=== PATIENT | female | born 1955 | race Caucasian/White ===

== ENCOUNTER 2019-06-05 23:07 | Inpatient (IN) | payer MEDICAID ==
[2019-06-05] MEDS: OXYCODONE/ACETAMINOPHEN (5/325) TAB PO (23:23)
[2019-06-05] MEDS: KETOROLAC 30 MG INJ IM (23:23)
[2019-06-06] MEDS: SOD CHLORIDE 0.9% 1,000 ML IV (00:17)
[2019-06-06 00:29] LABS: WHITE BLOOD COUNT 10.3 10^3/ul (4.8-10.8)
[2019-06-06 00:29] LABS: ADD MAN DIFF? NO; BASOPHIL # 0.1 10^3/ul (0.0-0.1); BASOPHILS % 0.5 % (0.0-2.0); EOSINOPHILS # 0.2 10^3/ul (0.0-0.5); EOSINOPHILS % 2.2 % (0.0-7.0); HEMATOCRIT 37.7 % (37.0-47.0); HEMOGLOBIN 12.3 g/dl (12.0-16.0); LYMPHOCYTES # 2.4 10^3/ul (0.8-2.9); LYMPHOCYTES % 23.7 % (15.0-51.0); MEAN CORPUSCULAR HEMOGLOBIN 30.6 pg (29.0-33.0); MEAN CORPUSCULAR HGB CONC 32.6 g/dl (32.0-37.0); MEAN CORPUSCULAR VOLUME 93.8 fl (82.0-101.0); MEAN PLATELET VOLUME 10.1 fl (7.4-10.4); MONOCYTE # 0.5 10^3/ul (0.3-0.9); MONOCYTES % 4.9 % (0.0-11.0); NEUTROPHILS % 68.3 % (39.0-77.0); PLATELET COUNT 259 10^3/UL (140-415); RED BLOOD COUNT 4.02 10^6/ul (4.20-5.40); RED CELL DISTRIBUTION WIDTH 12.7 % (11.5-14.5)
[2019-06-06] MEDS: HYDROmorphONE 0.5 MG/0.5 ML SYG IV (00:44)
[2019-06-06 00:49] LABS: ANION GAP 10 (5-13); BLOOD UREA NITROGEN 18 mg/dl (7-20); CALCIUM 8.3 mg/dl (8.4-10.2); CARBON DIOXIDE 23 mmol/L (21-31); CHLORIDE 110 mmol/L (97-110); CREATININE 0.66 mg/dl (0.44-1.00); Estimated GFR > 60 mL/min (>60); GLUCOSE 119 mg/dl (70-220); INR 0.87; POTASSIUM 4.1 mmol/L (3.5-5.1); PROTIME 11.9 Sec (11.9-14.9); PT RATIO 0.9; SODIUM 143 mmol/L (135-144)
[2019-06-06 00:50] LABS: PARTIAL THROMBOPLASTIN TIME 22.7 Sec (23.0-35.0)
[2019-06-06] MEDS ORDERED: NACL 0.9% 3 ML SYG IV (02:00)
[2019-06-06 05:44] LABS: ADD MAN DIFF? NO
[2019-06-06 05:58] LABS: BASOPHILS % 0.4 % (0.0-2.0); EOSINOPHILS # 0.1 10^3/ul (0.0-0.5); EOSINOPHILS % 0.9 % (0.0-7.0); HEMATOCRIT 39.9 % (37.0-47.0); HEMOGLOBIN 13.3 g/dl (12.0-16.0); LYMPHOCYTES # 2.1 10^3/ul (0.8-2.9); LYMPHOCYTES % 21.3 % (15.0-51.0); MEAN CORPUSCULAR HGB CONC 33.3 g/dl (32.0-37.0); MEAN PLATELET VOLUME 10.5 fl (7.4-10.4); MONOCYTE # 0.6 10^3/ul (0.3-0.9); MONOCYTES % 5.9 % (0.0-11.0); NEUTROPHIL # 6.9 10^3/ul (1.6-7.5); NEUTROPHILS % 71.2 % (39.0-77.0); PLATELET COUNT 272 10^3/UL (140-415); RED BLOOD COUNT 4.29 10^6/ul (4.20-5.40); RED CELL DISTRIBUTION WIDTH 12.8 % (11.5-14.5)
[2019-06-06 05:58] LABS: WHITE BLOOD COUNT 9.7 10^3/ul (4.8-10.8)
[2019-06-06 06:29] LABS: ALANINE AMINOTRANSFERASE 19 IU/L (13-69); ALBUMIN/GLOBULIN RATIO 1.25; ANION GAP 10 (5-13); ASPARTATE AMINO TRANSFERASE 26 IU/L (15-46); BILIRUBIN,INDIRECT 0.2 mg/dl (0-1.1); BILIRUBIN,TOTAL 0.2 mg/dl (0.2-1.3); BLOOD UREA NITROGEN 18 mg/dl (7-20); CALCIUM 8.3 mg/dl (8.4-10.2); CARBON DIOXIDE 24 mmol/L (21-31); CHLORIDE 109 mmol/L (97-110); CREATININE 0.67 mg/dl (0.44-1.00); Estimated GFR > 60 mL/min (>60); GLUCOSE 113 mg/dl (70-220); MAGNESIUM 2.2 mg/dl (1.7-2.5); PHOSPHORUS 5.5 mg/dl (2.5-4.9); POTASSIUM 4.8 mmol/L (3.5-5.1); SODIUM 143 mmol/L (135-144); TOTAL PROTEIN 7.2 g/dl (6.1-8.1)
[2019-06-06 06:30] LABS: ALKALINE PHOSPHATASE 109 IU/L (42-121)
[2019-06-06 08:52] LABS: AMPHETAMINE/METHAMPHETAMINE Negative (NEGATIVE); BARBITURATES Negative (NEGATIVE); BENZODIAZEPINES Negative (NEGATIVE); CANNABINOIDS Negative (NEGATIVE); COCAINE Negative (NEGATIVE); OPIATES Positive (NEGATIVE)
[2019-06-06] MEDS: HEPARIN 5,000 UNIT/1 ML VIAL SC ×2 (08:54→20:47)
[2019-06-06] MEDS: ONDANSETRON 4 MG INJ IV (10:20)
[2019-06-06] MEDS: HYDROCODONE/APAP (5/325) TAB PO ×3 (10:20→22:25)
[2019-06-06] MEDS ORDERED: LORAZEPAM 2 MG INJ IV (17:30)
[2019-06-06] MEDS: ALBUTEROL/IPRATROPIUM (NEB) 3 ML AMP HHN ×2 (17:43→19:46)
[2019-06-06] MEDS: ACETAMINOPHEN 325 MG TAB PO (17:57)
[2019-06-06] MEDS: MULTIVITAMINS THERAPEUTIC TAB PO (17:58)
[2019-06-06] MEDS: morphine 2 MG INJ IV (18:36)
[2019-06-06] MEDS: CHLORDIAZEPOXIDE 25 MG CAP PO (20:46)
[2019-06-07] MEDS: morphine 2 MG INJ IV ×5 (04:59→21:17)
[2019-06-07 05:35] LABS: ADD MAN DIFF? NO
[2019-06-07 05:42] LABS: WHITE BLOOD COUNT 9.2 10^3/ul (4.8-10.8)
[2019-06-07 05:42] LABS: BASOPHIL # 0.1 10^3/ul (0.0-0.1); BASOPHILS % 0.5 % (0.0-2.0); EOSINOPHILS # 0.2 10^3/ul (0.0-0.5); EOSINOPHILS % 1.6 % (0.0-7.0); HEMATOCRIT 36.1 % (37.0-47.0); LYMPHOCYTES # 2.1 10^3/ul (0.8-2.9); LYMPHOCYTES % 23.2 % (15.0-51.0); MEAN CORPUSCULAR HEMOGLOBIN 30.8 pg (29.0-33.0); MEAN CORPUSCULAR HGB CONC 33.2 g/dl (32.0-37.0); MEAN CORPUSCULAR VOLUME 92.8 fl (82.0-101.0); MEAN PLATELET VOLUME 10.8 fl (7.4-10.4); MONOCYTE # 0.9 10^3/ul (0.3-0.9); MONOCYTES % 10.2 % (0.0-11.0); NEUTROPHIL # 5.9 10^3/ul (1.6-7.5); NEUTROPHILS % 64.2 % (39.0-77.0); PLATELET COUNT 218 10^3/UL (140-415); RED BLOOD COUNT 3.89 10^6/ul (4.20-5.40); RED CELL DISTRIBUTION WIDTH 12.8 % (11.5-14.5)
[2019-06-07 06:13] LABS: ANION GAP 7 (5-13); BLOOD UREA NITROGEN 12 mg/dl (7-20); CALCIUM 8.6 mg/dl (8.4-10.2); CARBON DIOXIDE 26 mmol/L (21-31); CHLORIDE 105 mmol/L (97-110); CREATININE 0.62 mg/dl (0.44-1.00); Estimated GFR > 60 mL/min (>60); GLUCOSE 124 mg/dl (70-220); MAGNESIUM 1.9 mg/dl (1.7-2.5); PHOSPHORUS 3.6 mg/dl (2.5-4.9); POTASSIUM 4.1 mmol/L (3.5-5.1); SODIUM 138 mmol/L (135-144)
[2019-06-07 06:21] LABS: CHOL/HDL RATIO 3.3 RATIO; HDL CHOLESTEROL 47 mg/dl (35-98); LDL CHOLESTEROL,CALCULATED 71 mg/dl; TRIGLYCERIDES 204 mg/dl (0-149)
[2019-06-07 06:21] LABS: CHOLESTEROL 159 mg/dl (100-200)
[2019-06-07] MEDS: HYDROCODONE/APAP (5/325) TAB PO (06:25)
[2019-06-07 06:32] LABS: PROTIME 12.3 Sec (11.9-14.9)
[2019-06-07 06:33] LABS: PARTIAL THROMBOPLASTIN TIME 28.6 Sec (23.0-35.0)
[2019-06-07 07:10] LABS: HEMOGLOBIN A1C 5.5 % (0-5.9)
[2019-06-07 08:03] LABS: HAAIG REFLEX REFLEX FILED
[2019-06-07] MEDS: THIAMINE 100 MG TAB PO (08:18)
[2019-06-07] MEDS: MULTIVITAMINS THERAPEUTIC TAB PO (08:18)
[2019-06-07] MEDS: CHLORDIAZEPOXIDE 25 MG CAP PO ×3 (08:18→21:16)
[2019-06-07] MEDS: HEPARIN 5,000 UNIT/1 ML VIAL SC ×2 (08:19→21:17)
[2019-06-07] MEDS: ALBUTEROL/IPRATROPIUM (NEB) 3 ML AMP HHN ×3 (08:20→20:46)
[2019-06-07 08:50] LABS: HEPATITIS B SURFACE ANTIGEN NEGATIVE (NEGATIVE)
[2019-06-07 09:08] LABS: HEPATITIS B CORE ANTIBODY NEGATIVE (NEGATIVE); HEPATITIS C VIRAL ANTIBODY NEGATIVE (NEGATIVE)
[2019-06-08] MEDS ORDERED: POLYETHYLENE GLYCOL 17 GM PACKET (05:21)
[2019-06-08] MEDS: POLYETHYLENE GLYCOL 17 GM PACKET PO ×2 (05:25→08:58)
[2019-06-08] MEDS: morphine 2 MG INJ IV (05:25)
[2019-06-08 06:20] LABS: ADD MAN DIFF? NO
[2019-06-08 06:23] LABS: WHITE BLOOD COUNT 9.1 10^3/ul (4.8-10.8)
[2019-06-08 06:23] LABS: BASOPHIL # 0.1 10^3/ul (0.0-0.1); BASOPHILS % 0.6 % (0.0-2.0); EOSINOPHILS # 0.1 10^3/ul (0.0-0.5); HEMATOCRIT 37.8 % (37.0-47.0); HEMOGLOBIN 12.6 g/dl (12.0-16.0); LYMPHOCYTES # 1.8 10^3/ul (0.8-2.9); LYMPHOCYTES % 19.8 % (15.0-51.0); MEAN CORPUSCULAR HEMOGLOBIN 30.6 pg (29.0-33.0); MEAN CORPUSCULAR HGB CONC 33.3 g/dl (32.0-37.0); MEAN CORPUSCULAR VOLUME 91.7 fl (82.0-101.0); MEAN PLATELET VOLUME 10.6 fl (7.4-10.4); MONOCYTE # 0.9 10^3/ul (0.3-0.9); MONOCYTES % 9.8 % (0.0-11.0); NEUTROPHIL # 6.2 10^3/ul (1.6-7.5); NEUTROPHILS % 68.6 % (39.0-77.0); PLATELET COUNT 223 10^3/UL (140-415); RED BLOOD COUNT 4.12 10^6/ul (4.20-5.40); RED CELL DISTRIBUTION WIDTH 12.6 % (11.5-14.5)
[2019-06-08 07:03] LABS: PHOSPHORUS 4.1 mg/dl (2.5-4.9)
[2019-06-08 07:03] LABS: ANION GAP 8 (5-13); BLOOD UREA NITROGEN 7 mg/dl (7-20); CALCIUM 9.2 mg/dl (8.4-10.2); CARBON DIOXIDE 29 mmol/L (21-31); CHLORIDE 100 mmol/L (97-110); CREATININE 0.59 mg/dl (0.44-1.00); Estimated GFR > 60 mL/min (>60); GLUCOSE 120 mg/dl (70-220); POTASSIUM 4.1 mmol/L (3.5-5.1); SODIUM 137 mmol/L (135-144)
[2019-06-08] MEDS: ALBUTEROL/IPRATROPIUM (NEB) 3 ML AMP HHN ×2 (08:00→13:26)
[2019-06-08] MEDS: CHLORDIAZEPOXIDE 25 MG CAP PO ×3 (08:58→20:27)
[2019-06-08] MEDS: THIAMINE 100 MG TAB PO (08:58)
[2019-06-08] MEDS: MULTIVITAMINS THERAPEUTIC TAB PO (08:58)
[2019-06-08] MEDS: HEPARIN 5,000 UNIT/1 ML VIAL SC ×2 (08:59→20:28)
[2019-06-08] MEDS: DOCUSATE SODIUM 100 MG CAP PO ×2 (09:00→20:27)
[2019-06-08] MEDS: SOD CHLORIDE 0.9% 1,000 ML IV (23:31)
[2019-06-09 07:22] LABS: ADD MAN DIFF? NO
[2019-06-09 07:33] LABS: WHITE BLOOD COUNT 7.3 10^3/ul (4.8-10.8)
[2019-06-09 07:33] LABS: BASOPHILS % 0.5 % (0.0-2.0); EOSINOPHILS # 0.2 10^3/ul (0.0-0.5); EOSINOPHILS % 3.3 % (0.0-7.0); HEMATOCRIT 36.5 % (37.0-47.0); HEMOGLOBIN 12.1 g/dl (12.0-16.0); LYMPHOCYTES # 1.7 10^3/ul (0.8-2.9); LYMPHOCYTES % 23.9 % (15.0-51.0); MEAN CORPUSCULAR HEMOGLOBIN 30.9 pg (29.0-33.0); MEAN CORPUSCULAR HGB CONC 33.2 g/dl (32.0-37.0); MEAN CORPUSCULAR VOLUME 93.4 fl (82.0-101.0); MEAN PLATELET VOLUME 10.9 fl (7.4-10.4); MONOCYTE # 0.7 10^3/ul (0.3-0.9); MONOCYTES % 9.9 % (0.0-11.0); NEUTROPHIL # 4.5 10^3/ul (1.6-7.5); NEUTROPHILS % 62.1 % (39.0-77.0); PLATELET COUNT 248 10^3/UL (140-415); RED BLOOD COUNT 3.91 10^6/ul (4.20-5.40); RED CELL DISTRIBUTION WIDTH 12.9 % (11.5-14.5)
[2019-06-09 07:51] LABS: ANION GAP 7 (5-13); BLOOD UREA NITROGEN 12 mg/dl (7-20); CARBON DIOXIDE 28 mmol/L (21-31); CHLORIDE 105 mmol/L (97-110); CREATININE 0.63 mg/dl (0.44-1.00); Estimated GFR > 60 mL/min (>60); GLUCOSE 102 mg/dl (70-220); POTASSIUM 4.1 mmol/L (3.5-5.1); SODIUM 140 mmol/L (135-144)
[2019-06-09 08:41] LABS: MAGNESIUM 2.2 mg/dl (1.7-2.5)
[2019-06-09 08:41] LABS: PHOSPHORUS 4.5 mg/dl (2.5-4.9)
[2019-06-09] MEDS: MULTIVITAMINS THERAPEUTIC TAB PO (08:56)
[2019-06-09] MEDS: DOCUSATE SODIUM 100 MG CAP PO ×2 (08:56→20:57)
[2019-06-09] MEDS: THIAMINE 100 MG TAB PO (08:56)
[2019-06-09] MEDS: CHLORDIAZEPOXIDE 25 MG CAP PO ×3 (08:56→20:57)
[2019-06-09] MEDS: HEPARIN 5,000 UNIT/1 ML VIAL SC ×2 (08:57→20:55)
[2019-06-09] MEDS ORDERED: EPINEPHrine 1 MG INJ (13:59)
[2019-06-09] MEDS ORDERED: EPINEPHrine 0.1 MG/ML SYG (13:59)
[2019-06-09] MEDS ORDERED: PROPOFOL 20 ML (13:59)
[2019-06-09] MEDS ORDERED: LIDOCAINE 2% (SDV) 5 ML INJ (14:00)
[2019-06-09] MEDS ORDERED: ROCURONIUM 50 MG INJ (14:00)
[2019-06-09] MEDS ORDERED: FENTAnyl 50 MCG/ML VIAL (14:00)
[2019-06-09] MEDS ORDERED: MIDAZOLAM 1 MG/ML 2 ML INJ (14:00)
[2019-06-09] MEDS: POLYMYXIN/BACITRACIN 1L IRRIG (16:00)
[2019-06-09] MEDS ORDERED: DEXAMETHASONE 4 MG/ML 5 ML INJ (17:18)
[2019-06-09] MEDS ORDERED: ONDANSETRON 4 MG INJ (17:18)
[2019-06-09] MEDS ORDERED: NEOSTIGMINE 3 MG/3 ML SYRINGE (17:43)
[2019-06-09] MEDS ORDERED: GLYCOPYRROLATE 0.4 MG INJ (17:43)
[2019-06-09] MEDS ORDERED: EPHEDrine 25 MG/5 ML SYG IV (18:00)
[2019-06-09] MEDS ORDERED: HYDROmorphONE 1 MG/5 ML IV SYRINGE IV (18:00)
[2019-06-09] MEDS ORDERED: NACL 0.9% 3 ML SYG IV (18:00)
[2019-06-09] MEDS ORDERED: MEPERIDINE 25 MG INJ IV (18:00)
[2019-06-09] MEDS ORDERED: hydrALAzine 20 MG INJ IV (18:00)
[2019-06-09] MEDS ORDERED: LABETALOL HCL 20MG INJ IV (18:00)
[2019-06-09] MEDS ORDERED: oxyCODONE 5 MG TAB PO (18:00)
[2019-06-09] MEDS ORDERED: OXYCODONE/ACETAMINOPHEN (5/325) TAB PO ×2 (18:00)
[2019-06-09] MEDS ORDERED: DIPHENHYDRAMINE 50 MG INJ IV (18:00)
[2019-06-09] MEDS ORDERED: MIDAZOLAM 1 MG/ML 2 ML INJ IV (18:00)
[2019-06-09] MEDS ORDERED: KETOROLAC 30 MG INJ IV (18:00)
[2019-06-09] MEDS ORDERED: ALBUTEROL 0.083% (NEB) 2.5 MG/3 ML AMP HHN (18:00)
[2019-06-09] MEDS ORDERED: METOCLOPRAMIDE 10 MG INJ IV (18:00)
[2019-06-09 18:13] LABS: ADD UMIC NO; UR ASCORBIC ACID NEGATIVE (NEGATIVE); UR BILIRUBIN (Dip) NEGATIVE (NEGATIVE); UR BLOOD (Dip) NEGATIVE (NEGATIVE); UR CLARITY CLEAR (CLEAR); UR COLOR YELLOW (YELLOW); UR GLUCOSE (Dip) NEGATIVE (NEGATIVE); UR KETONES (Dip) 2+ mg/dL (NEGATIVE); UR LEUKOCYTE ESTERASE (Dip) NEGATIVE Leu/ul (NEGATIVE); UR NITRITE (Dip) NEGATIVE (NEGATIVE); UR SPECIFIC GRAVITY (Dip) 1.026 (1.003-1.030); UR TOTAL PROTEIN (Dip) NEGATIVE (NEGATIVE); UR UROBILINOGEN (Dip) 1+ mg/dL (NEGATIVE)
[2019-06-09] MEDS: HYDROmorphONE 1 MG/5 ML IV SYRINGE IV ×2 (18:36→18:41)
[2019-06-09] MEDS: ONDANSETRON 4 MG INJ IV (18:39)
[2019-06-09] MEDS: DEXTROSE 5%-LR 1,000 ML IV (19:08)
[2019-06-09] MEDS: SOD CHLORIDE 0.9% 1,000 ML IV (19:55)
[2019-06-09] MEDS: morphine 2 MG INJ IV (21:26)
[2019-06-09] MEDS: HYDROmorphONE 1 MG/ML SYG IV (23:06)
[2019-06-10] MEDS: SOD CHLORIDE 0.9% 1,000 ML IV ×3 (05:26→19:19)
[2019-06-10] MEDS: morphine 2 MG INJ IV (05:26)
[2019-06-10 05:28] LABS: ADD MAN DIFF? NO
[2019-06-10 05:32] LABS: BASOPHILS % 0.1 % (0.0-2.0); EOSINOPHILS % 0.1 % (0.0-7.0); HEMATOCRIT 33.1 % (37.0-47.0); LYMPHOCYTES # 0.6 10^3/ul (0.8-2.9); LYMPHOCYTES % 7.2 % (15.0-51.0); MEAN CORPUSCULAR HEMOGLOBIN 31.1 pg (29.0-33.0); MEAN CORPUSCULAR HGB CONC 33.2 g/dl (32.0-37.0); MEAN CORPUSCULAR VOLUME 93.5 fl (82.0-101.0); MEAN PLATELET VOLUME 10.6 fl (7.4-10.4); MONOCYTE # 0.5 10^3/ul (0.3-0.9); MONOCYTES % 6.5 % (0.0-11.0); NEUTROPHIL # 7.1 10^3/ul (1.6-7.5); NEUTROPHILS % 85.6 % (39.0-77.0); PLATELET COUNT 235 10^3/UL (140-415); RED BLOOD COUNT 3.54 10^6/ul (4.20-5.40); RED CELL DISTRIBUTION WIDTH 12.5 % (11.5-14.5)
[2019-06-10 05:32] LABS: WHITE BLOOD COUNT 8.3 10^3/ul (4.8-10.8)
[2019-06-10 06:16] LABS: MAGNESIUM 1.9 mg/dl (1.7-2.5)
[2019-06-10 06:16] LABS: PHOSPHORUS 4.4 mg/dl (2.5-4.9)
[2019-06-10 07:04] LABS: ANION GAP 9 (5-13); BLOOD UREA NITROGEN 11 mg/dl (7-20); CALCIUM 8.7 mg/dl (8.4-10.2); CARBON DIOXIDE 23 mmol/L (21-31); CHLORIDE 104 mmol/L (97-110); CREATININE 0.46 mg/dl (0.44-1.00); Estimated GFR > 60 mL/min (>60); GLUCOSE 192 mg/dl (70-220); POTASSIUM 4.5 mmol/L (3.5-5.1); SODIUM 136 mmol/L (135-144)
[2019-06-10] MEDS: BISACODYL (EC) 5 MG TAB PO (08:50)
[2019-06-10] MEDS: ENOXAPARIN 40 MG/0.4 ML SYG SC (08:50)
[2019-06-10] MEDS: MULTIVITAMINS THERAPEUTIC TAB PO (08:51)
[2019-06-10] MEDS: CHLORDIAZEPOXIDE 25 MG CAP PO (08:51)
[2019-06-10] MEDS: THIAMINE 100 MG TAB PO (08:51)
[2019-06-10] MEDS: DOCUSATE SODIUM 100 MG CAP PO ×2 (08:51→20:17)
[2019-06-10] MEDS: HYDROCODONE/APAP (5/325) TAB PO ×3 (08:53→20:17)
[2019-06-10] MEDS: CHLORDIAZEPOXIDE 5 MG CAP PO ×2 (13:18→20:17)
[2019-06-11] MEDS: HYDROCODONE/APAP (5/325) TAB PO ×2 (04:51→23:33)
[2019-06-11] MEDS: POLYETHYLENE GLYCOL 17 GM PACKET PO (05:34)
[2019-06-11 07:13] LABS: ADD MAN DIFF? NO
[2019-06-11 07:17] LABS: BASOPHILS % 0.4 % (0.0-2.0); EOSINOPHILS # 0.1 10^3/ul (0.0-0.5); EOSINOPHILS % 1.4 % (0.0-7.0); HEMATOCRIT 32.1 % (37.0-47.0); HEMOGLOBIN 10.3 g/dl (12.0-16.0); LYMPHOCYTES # 1.6 10^3/ul (0.8-2.9); LYMPHOCYTES % 20.1 % (15.0-51.0); MEAN CORPUSCULAR HEMOGLOBIN 30.6 pg (29.0-33.0); MEAN CORPUSCULAR HGB CONC 32.1 g/dl (32.0-37.0); MEAN CORPUSCULAR VOLUME 95.3 fl (82.0-101.0); MEAN PLATELET VOLUME 10.6 fl (7.4-10.4); MONOCYTE # 0.8 10^3/ul (0.3-0.9); MONOCYTES % 9.7 % (0.0-11.0); NEUTROPHIL # 5.5 10^3/ul (1.6-7.5); NEUTROPHILS % 68.2 % (39.0-77.0); PLATELET COUNT 247 10^3/UL (140-415); RED BLOOD COUNT 3.37 10^6/ul (4.20-5.40)
[2019-06-11 07:44] LABS: MAGNESIUM 1.9 mg/dl (1.7-2.5)
[2019-06-11 07:44] LABS: PHOSPHORUS 4.4 mg/dl (2.5-4.9)
[2019-06-11 07:46] LABS: ANION GAP 5 (5-13); BLOOD UREA NITROGEN 9 mg/dl (7-20); CALCIUM 8.5 mg/dl (8.4-10.2); CARBON DIOXIDE 29 mmol/L (21-31); CHLORIDE 104 mmol/L (97-110); CREATININE 0.53 mg/dl (0.44-1.00); Estimated GFR > 60 mL/min (>60); GLUCOSE 107 mg/dl (70-220); POTASSIUM 3.6 mmol/L (3.5-5.1); SODIUM 138 mmol/L (135-144)
[2019-06-11] MEDS: DOCUSATE SODIUM 100 MG CAP PO ×2 (08:29→21:02)
[2019-06-11] MEDS: THIAMINE 100 MG TAB PO (08:29)
[2019-06-11] MEDS: CHLORDIAZEPOXIDE 5 MG CAP PO ×2 (08:29→21:02)
[2019-06-11] MEDS: MULTIVITAMINS THERAPEUTIC TAB PO (08:29)
[2019-06-11] MEDS: ENOXAPARIN 40 MG/0.4 ML SYG SC (08:30)
[2019-06-11] MEDS: morphine 2 MG INJ IV ×2 (09:37→14:17)
[2019-06-11] MEDS: SOD CHLORIDE 0.9% 1,000 ML IV (10:16)
[2019-06-11] MEDS: BISACODYL (EC) 5 MG TAB PO (10:16)
[2019-06-11] MEDS: NA PHOSPHATE/BIPHOS 133 ML ENEMA PR (14:17)
[2019-06-12 05:52] LABS: ADD MAN DIFF? NO
[2019-06-12 05:57] LABS: BASOPHIL # 0.1 10^3/ul (0.0-0.1); BASOPHILS % 0.6 % (0.0-2.0); EOSINOPHILS # 0.2 10^3/ul (0.0-0.5); EOSINOPHILS % 2.9 % (0.0-7.0); HEMATOCRIT 33.7 % (37.0-47.0); HEMOGLOBIN 11.1 g/dl (12.0-16.0); LYMPHOCYTES # 2.1 10^3/ul (0.8-2.9); LYMPHOCYTES % 25.9 % (15.0-51.0); MEAN CORPUSCULAR HEMOGLOBIN 30.8 pg (29.0-33.0); MEAN CORPUSCULAR HGB CONC 32.9 g/dl (32.0-37.0); MEAN CORPUSCULAR VOLUME 93.6 fl (82.0-101.0); MEAN PLATELET VOLUME 10.1 fl (7.4-10.4); MONOCYTE # 0.9 10^3/ul (0.3-0.9); MONOCYTES % 11.1 % (0.0-11.0); NEUTROPHIL # 4.7 10^3/ul (1.6-7.5); PLATELET COUNT 287 10^3/UL (140-415); RED CELL DISTRIBUTION WIDTH 12.8 % (11.5-14.5)
[2019-06-12 06:21] LABS: PHOSPHORUS 5.2 mg/dl (2.5-4.9)
[2019-06-12 06:21] LABS: MAGNESIUM 2.2 mg/dl (1.7-2.5)
[2019-06-12 06:25] LABS: ANION GAP 5 (5-13); BLOOD UREA NITROGEN 9 mg/dl (7-20); CALCIUM 9.1 mg/dl (8.4-10.2); CARBON DIOXIDE 29 mmol/L (21-31); CHLORIDE 106 mmol/L (97-110); CREATININE 0.51 mg/dl (0.44-1.00); Estimated GFR > 60 mL/min (>60); GLUCOSE 100 mg/dl (70-220); POTASSIUM 3.9 mmol/L (3.5-5.1); SODIUM 140 mmol/L (135-144)
[2019-06-12] MEDS: DOCUSATE SODIUM 100 MG CAP PO ×2 (08:58→20:35)
[2019-06-12] MEDS: CHLORDIAZEPOXIDE 5 MG CAP PO ×3 (08:59→20:35)
[2019-06-12] MEDS: MULTIVITAMINS THERAPEUTIC TAB PO (08:59)
[2019-06-12] MEDS: THIAMINE 100 MG TAB PO (08:59)
[2019-06-12] MEDS: ENOXAPARIN 40 MG/0.4 ML SYG SC (09:00)
[2019-06-12] MEDS: HYDROCODONE/APAP (5/325) TAB PO (20:35)
[2019-06-13 05:49] LABS: ADD MAN DIFF? NO
[2019-06-13 05:56] LABS: WHITE BLOOD COUNT 7.4 10^3/ul (4.8-10.8)
[2019-06-13 05:56] LABS: BASOPHILS % 0.5 % (0.0-2.0); EOSINOPHILS # 0.2 10^3/ul (0.0-0.5); EOSINOPHILS % 3.1 % (0.0-7.0); HEMATOCRIT 35.1 % (37.0-47.0); HEMOGLOBIN 11.6 g/dl (12.0-16.0); LYMPHOCYTES # 1.8 10^3/ul (0.8-2.9); LYMPHOCYTES % 23.5 % (15.0-51.0); MEAN CORPUSCULAR VOLUME 93.9 fl (82.0-101.0); MEAN PLATELET VOLUME 9.6 fl (7.4-10.4); MONOCYTE # 0.8 10^3/ul (0.3-0.9); MONOCYTES % 10.5 % (0.0-11.0); NEUTROPHIL # 4.6 10^3/ul (1.6-7.5); NEUTROPHILS % 61.9 % (39.0-77.0); PLATELET COUNT 320 10^3/UL (140-415); RED BLOOD COUNT 3.74 10^6/ul (4.20-5.40); RED CELL DISTRIBUTION WIDTH 12.8 % (11.5-14.5)
[2019-06-13 06:26] LABS: MAGNESIUM 2.2 mg/dl (1.7-2.5)
[2019-06-13 06:34] LABS: ANION GAP 7 (5-13); BLOOD UREA NITROGEN 11 mg/dl (7-20); CALCIUM 9.5 mg/dl (8.4-10.2); CARBON DIOXIDE 29 mmol/L (21-31); CHLORIDE 104 mmol/L (97-110); CREATININE 0.65 mg/dl (0.44-1.00); Estimated GFR > 60 mL/min (>60); GLUCOSE 103 mg/dl (70-220); POTASSIUM 4.2 mmol/L (3.5-5.1); SODIUM 140 mmol/L (135-144)
[2019-06-13] MEDS: CHLORDIAZEPOXIDE 5 MG CAP PO ×3 (08:53→20:22)
[2019-06-13] MEDS: DOCUSATE SODIUM 100 MG CAP PO ×2 (08:53→20:22)
[2019-06-13] MEDS: THIAMINE 100 MG TAB PO (08:53)
[2019-06-13] MEDS: MULTIVITAMINS THERAPEUTIC TAB PO (08:53)
[2019-06-13] MEDS: HYDROCODONE/APAP (5/325) TAB PO ×2 (08:53→17:07)
[2019-06-13] MEDS: ENOXAPARIN 40 MG/0.4 ML SYG SC (08:54)
[2019-06-13] MEDS: morphine 2 MG INJ IV (20:22)
[2019-06-14 06:19] LABS: ADD MAN DIFF? NO
[2019-06-14 06:28] LABS: BASOPHIL # 0.1 10^3/ul (0.0-0.1); BASOPHILS % 0.7 % (0.0-2.0); EOSINOPHILS # 0.4 10^3/ul (0.0-0.5); EOSINOPHILS % 4.1 % (0.0-7.0); HEMATOCRIT 34.4 % (37.0-47.0); HEMOGLOBIN 11.3 g/dl (12.0-16.0); LYMPHOCYTES # 1.8 10^3/ul (0.8-2.9); LYMPHOCYTES % 20.5 % (15.0-51.0); MEAN CORPUSCULAR HEMOGLOBIN 30.9 pg (29.0-33.0); MEAN CORPUSCULAR HGB CONC 32.8 g/dl (32.0-37.0); MONOCYTE # 0.8 10^3/ul (0.3-0.9); MONOCYTES % 9.3 % (0.0-11.0); NEUTROPHIL # 5.5 10^3/ul (1.6-7.5); NEUTROPHILS % 64.7 % (39.0-77.0); PLATELET COUNT 371 10^3/UL (140-415); RED BLOOD COUNT 3.66 10^6/ul (4.20-5.40); RED CELL DISTRIBUTION WIDTH 12.6 % (11.5-14.5)
[2019-06-14 06:28] LABS: WHITE BLOOD COUNT 8.6 10^3/ul (4.8-10.8)
[2019-06-14 06:47] LABS: ANION GAP 6 (5-13); BLOOD UREA NITROGEN 11 mg/dl (7-20); CALCIUM 9.1 mg/dl (8.4-10.2); CARBON DIOXIDE 28 mmol/L (21-31); CHLORIDE 103 mmol/L (97-110); CREATININE 0.58 mg/dl (0.44-1.00); Estimated GFR > 60 mL/min (>60); GLUCOSE 117 mg/dl (70-220); POTASSIUM 4.2 mmol/L (3.5-5.1); SODIUM 137 mmol/L (135-144)
[2019-06-14] MEDS: MULTIVITAMINS THERAPEUTIC TAB PO (09:44)
[2019-06-14] MEDS: HYDROCODONE/APAP (5/325) TAB PO (09:45)
[2019-06-14] MEDS: THIAMINE 100 MG TAB PO (09:45)
[2019-06-14] MEDS: CHLORDIAZEPOXIDE 5 MG CAP PO ×3 (09:45→21:24)
[2019-06-14] MEDS: DOCUSATE SODIUM 100 MG CAP PO ×2 (09:45→21:24)
[2019-06-14] MEDS: ENOXAPARIN 40 MG/0.4 ML SYG SC (09:46)
[2019-06-15 06:16] LABS: ADD MAN DIFF? NO
[2019-06-15 06:22] LABS: BASOPHILS % 0.5 % (0.0-2.0); EOSINOPHILS # 0.3 10^3/ul (0.0-0.5); EOSINOPHILS % 3.9 % (0.0-7.0); HEMATOCRIT 34.7 % (37.0-47.0); HEMOGLOBIN 11.5 g/dl (12.0-16.0); LYMPHOCYTES # 1.8 10^3/ul (0.8-2.9); LYMPHOCYTES % 21.9 % (15.0-51.0); MEAN CORPUSCULAR HEMOGLOBIN 30.9 pg (29.0-33.0); MEAN CORPUSCULAR HGB CONC 33.1 g/dl (32.0-37.0); MEAN CORPUSCULAR VOLUME 93.3 fl (82.0-101.0); MEAN PLATELET VOLUME 9.7 fl (7.4-10.4); MONOCYTE # 0.8 10^3/ul (0.3-0.9); MONOCYTES % 10.1 % (0.0-11.0); NEUTROPHIL # 5.2 10^3/ul (1.6-7.5); NEUTROPHILS % 62.9 % (39.0-77.0); PLATELET COUNT 432 10^3/UL (140-415); RED BLOOD COUNT 3.72 10^6/ul (4.20-5.40); RED CELL DISTRIBUTION WIDTH 12.9 % (11.5-14.5)
[2019-06-15 06:22] LABS: WHITE BLOOD COUNT 8.3 10^3/ul (4.8-10.8)
[2019-06-15 06:49] LABS: ANION GAP 8 (5-13); BLOOD UREA NITROGEN 10 mg/dl (7-20); CALCIUM 9.2 mg/dl (8.4-10.2); CARBON DIOXIDE 27 mmol/L (21-31); CHLORIDE 107 mmol/L (97-110); Estimated GFR > 60 mL/min (>60); GLUCOSE 116 mg/dl (70-220); POTASSIUM 4.3 mmol/L (3.5-5.1); SODIUM 142 mmol/L (135-144)
[2019-06-15] MEDS: MULTIVITAMINS THERAPEUTIC TAB PO (09:05)
[2019-06-15] MEDS: DOCUSATE SODIUM 100 MG CAP PO ×2 (09:05→20:38)
[2019-06-15] MEDS: CHLORDIAZEPOXIDE 5 MG CAP PO ×2 (09:05→12:35)
[2019-06-15] MEDS: THIAMINE 100 MG TAB PO (09:05)
[2019-06-15] MEDS: ENOXAPARIN 40 MG/0.4 ML SYG SC (09:06)
[2019-06-15] MEDS: HYDROCODONE/APAP (5/325) TAB PO (11:41)
[2019-06-16] MEDS: HYDROCODONE/APAP (5/325) TAB PO ×2 (05:31→20:02)
[2019-06-16 06:30] LABS: WHITE BLOOD COUNT 7.5 10^3/ul (4.8-10.8)
[2019-06-16 06:30] LABS: ADD MAN DIFF? NO; BASOPHIL # 0.1 10^3/ul (0.0-0.1); BASOPHILS % 0.8 % (0.0-2.0); EOSINOPHILS # 0.3 10^3/ul (0.0-0.5); EOSINOPHILS % 3.9 % (0.0-7.0); HEMOGLOBIN 11.6 g/dl (12.0-16.0); LYMPHOCYTES # 1.7 10^3/ul (0.8-2.9); LYMPHOCYTES % 23.1 % (15.0-51.0); MEAN CORPUSCULAR HEMOGLOBIN 29.9 pg (29.0-33.0); MEAN CORPUSCULAR HGB CONC 31.4 g/dl (32.0-37.0); MEAN CORPUSCULAR VOLUME 95.4 fl (82.0-101.0); MEAN PLATELET VOLUME 9.9 fl (7.4-10.4); MONOCYTE # 0.7 10^3/ul (0.3-0.9); MONOCYTES % 9.1 % (0.0-11.0); NEUTROPHIL # 4.7 10^3/ul (1.6-7.5); NEUTROPHILS % 62.6 % (39.0-77.0); PLATELET COUNT 436 10^3/UL (140-415); RED BLOOD COUNT 3.88 10^6/ul (4.20-5.40); RED CELL DISTRIBUTION WIDTH 12.9 % (11.5-14.5)
[2019-06-16 07:03] LABS: ANION GAP 8 (5-13); BLOOD UREA NITROGEN 13 mg/dl (7-20); CALCIUM 9.5 mg/dl (8.4-10.2); CARBON DIOXIDE 30 mmol/L (21-31); CHLORIDE 104 mmol/L (97-110); CREATININE 0.62 mg/dl (0.44-1.00); Estimated GFR > 60 mL/min (>60); GLUCOSE 108 mg/dl (70-220); POTASSIUM 4.5 mmol/L (3.5-5.1); SODIUM 142 mmol/L (135-144)
[2019-06-16] MEDS: MULTIVITAMINS THERAPEUTIC TAB PO (09:10)
[2019-06-16] MEDS: DOCUSATE SODIUM 100 MG CAP PO ×2 (09:10→20:02)
[2019-06-16] MEDS: THIAMINE 100 MG TAB PO (09:10)
[2019-06-16] MEDS: ENOXAPARIN 40 MG/0.4 ML SYG SC (09:11)
[2019-06-17] MEDS: HYDROCODONE/APAP (5/325) TAB PO ×2 (05:21→20:16)
[2019-06-17 06:17] LABS: ADD MAN DIFF? NO
[2019-06-17 06:29] LABS: WHITE BLOOD COUNT 8.1 10^3/ul (4.8-10.8)
[2019-06-17 06:29] LABS: BASOPHIL # 0.1 10^3/ul (0.0-0.1); BASOPHILS % 0.7 % (0.0-2.0); EOSINOPHILS # 0.3 10^3/ul (0.0-0.5); EOSINOPHILS % 3.9 % (0.0-7.0); HEMATOCRIT 36.1 % (37.0-47.0); HEMOGLOBIN 11.4 g/dl (12.0-16.0); LYMPHOCYTES # 2.5 10^3/ul (0.8-2.9); LYMPHOCYTES % 30.4 % (15.0-51.0); MEAN CORPUSCULAR HEMOGLOBIN 30.2 pg (29.0-33.0); MEAN CORPUSCULAR HGB CONC 31.6 g/dl (32.0-37.0); MEAN CORPUSCULAR VOLUME 95.5 fl (82.0-101.0); MEAN PLATELET VOLUME 9.9 fl (7.4-10.4); MONOCYTE # 0.7 10^3/ul (0.3-0.9); MONOCYTES % 9.2 % (0.0-11.0); NEUTROPHIL # 4.4 10^3/ul (1.6-7.5); NEUTROPHILS % 55.1 % (39.0-77.0); PLATELET COUNT 426 10^3/UL (140-415); RED BLOOD COUNT 3.78 10^6/ul (4.20-5.40); RED CELL DISTRIBUTION WIDTH 12.7 % (11.5-14.5)
[2019-06-17 06:49] LABS: ANION GAP 7 (5-13); BLOOD UREA NITROGEN 13 mg/dl (7-20); CALCIUM 9.4 mg/dl (8.4-10.2); CARBON DIOXIDE 29 mmol/L (21-31); CHLORIDE 104 mmol/L (97-110); CREATININE 0.62 mg/dl (0.44-1.00); Estimated GFR > 60 mL/min (>60); GLUCOSE 95 mg/dl (70-220); POTASSIUM 4.1 mmol/L (3.5-5.1); SODIUM 140 mmol/L (135-144)
[2019-06-17] MEDS: MULTIVITAMINS THERAPEUTIC TAB PO (09:00)
[2019-06-17] MEDS: DOCUSATE SODIUM 100 MG CAP PO ×2 (09:01→20:18)
[2019-06-17] MEDS: THIAMINE 100 MG TAB PO (09:01)
[2019-06-17] MEDS: ENOXAPARIN 40 MG/0.4 ML SYG SC (09:01)
[2019-06-18] MEDS: HYDROCODONE/APAP (5/325) TAB PO ×3 (06:21→18:49)
[2019-06-18 06:58] LABS: ADD MAN DIFF? NO
[2019-06-18 07:05] LABS: BASOPHIL # 0.1 10^3/ul (0.0-0.1); BASOPHILS % 0.8 % (0.0-2.0); EOSINOPHILS # 0.3 10^3/ul (0.0-0.5); EOSINOPHILS % 3.5 % (0.0-7.0); HEMATOCRIT 35.9 % (37.0-47.0); HEMOGLOBIN 11.2 g/dl (12.0-16.0); LYMPHOCYTES # 1.7 10^3/ul (0.8-2.9); LYMPHOCYTES % 22.4 % (15.0-51.0); MEAN CORPUSCULAR HEMOGLOBIN 29.9 pg (29.0-33.0); MEAN CORPUSCULAR HGB CONC 31.2 g/dl (32.0-37.0); MEAN CORPUSCULAR VOLUME 95.7 fl (82.0-101.0); MONOCYTE # 0.7 10^3/ul (0.3-0.9); MONOCYTES % 8.4 % (0.0-11.0); NEUTROPHILS % 64.3 % (39.0-77.0); PLATELET COUNT 389 10^3/UL (140-415); RED BLOOD COUNT 3.75 10^6/ul (4.20-5.40); RED CELL DISTRIBUTION WIDTH 12.6 % (11.5-14.5)
[2019-06-18 07:05] LABS: WHITE BLOOD COUNT 7.7 10^3/ul (4.8-10.8)
[2019-06-18 07:47] LABS: ANION GAP 9 (5-13); BLOOD UREA NITROGEN 10 mg/dl (7-20); CALCIUM 9.2 mg/dl (8.4-10.2); CARBON DIOXIDE 26 mmol/L (21-31); CHLORIDE 105 mmol/L (97-110); CREATININE 0.49 mg/dl (0.44-1.00); Estimated GFR > 60 mL/min (>60); GLUCOSE 107 mg/dl (70-220); POTASSIUM 4.1 mmol/L (3.5-5.1); SODIUM 140 mmol/L (135-144)
[2019-06-18] MEDS: DOCUSATE SODIUM 100 MG CAP PO ×2 (09:55→20:24)
[2019-06-18] MEDS: MULTIVITAMINS THERAPEUTIC TAB PO (09:55)
[2019-06-18] MEDS: ENOXAPARIN 40 MG/0.4 ML SYG SC (09:55)
[2019-06-18] MEDS: THIAMINE 100 MG TAB PO (09:56)
[2019-06-19] MEDS: HYDROCODONE/APAP (5/325) TAB PO ×3 (05:04→22:10)
[2019-06-19 06:33] LABS: ADD MAN DIFF? NO
[2019-06-19 06:39] LABS: WHITE BLOOD COUNT 7.6 10^3/ul (4.8-10.8)
[2019-06-19 06:39] LABS: BASOPHIL # 0.1 10^3/ul (0.0-0.1); BASOPHILS % 0.7 % (0.0-2.0); EOSINOPHILS # 0.2 10^3/ul (0.0-0.5); EOSINOPHILS % 2.9 % (0.0-7.0); HEMATOCRIT 34.3 % (37.0-47.0); HEMOGLOBIN 11.1 g/dl (12.0-16.0); LYMPHOCYTES # 2.1 10^3/ul (0.8-2.9); LYMPHOCYTES % 27.4 % (15.0-51.0); MEAN CORPUSCULAR HEMOGLOBIN 30.6 pg (29.0-33.0); MEAN CORPUSCULAR HGB CONC 32.4 g/dl (32.0-37.0); MEAN CORPUSCULAR VOLUME 94.5 fl (82.0-101.0); MONOCYTE # 0.6 10^3/ul (0.3-0.9); NEUTROPHIL # 4.6 10^3/ul (1.6-7.5); NEUTROPHILS % 60.3 % (39.0-77.0); PLATELET COUNT 403 10^3/UL (140-415); RED BLOOD COUNT 3.63 10^6/ul (4.20-5.40); RED CELL DISTRIBUTION WIDTH 12.4 % (11.5-14.5)
[2019-06-19 07:24] LABS: ANION GAP 8 (5-13); BLOOD UREA NITROGEN 10 mg/dl (7-20); CALCIUM 9.2 mg/dl (8.4-10.2); CARBON DIOXIDE 29 mmol/L (21-31); CHLORIDE 106 mmol/L (97-110); CREATININE 0.54 mg/dl (0.44-1.00); Estimated GFR > 60 mL/min (>60); GLUCOSE 102 mg/dl (70-220); POTASSIUM 4.2 mmol/L (3.5-5.1); SODIUM 143 mmol/L (135-144)
[2019-06-19] MEDS: DOCUSATE SODIUM 100 MG CAP PO ×2 (08:28→20:34)
[2019-06-19] MEDS: THIAMINE 100 MG TAB PO (08:28)
[2019-06-19] MEDS: MULTIVITAMINS THERAPEUTIC TAB PO (08:28)
[2019-06-19] MEDS: ENOXAPARIN 40 MG/0.4 ML SYG SC (08:29)
[2019-06-20 07:22] LABS: ADD MAN DIFF? NO
[2019-06-20 07:27] LABS: WHITE BLOOD COUNT 7.3 10^3/ul (4.8-10.8)
[2019-06-20 07:27] LABS: BASOPHILS % 0.5 % (0.0-2.0); EOSINOPHILS # 0.3 10^3/ul (0.0-0.5); EOSINOPHILS % 3.7 % (0.0-7.0); HEMATOCRIT 35.5 % (37.0-47.0); HEMOGLOBIN 11.2 g/dl (12.0-16.0); LYMPHOCYTES # 2.3 10^3/ul (0.8-2.9); LYMPHOCYTES % 31.3 % (15.0-51.0); MEAN CORPUSCULAR HGB CONC 31.5 g/dl (32.0-37.0); MEAN CORPUSCULAR VOLUME 95.2 fl (82.0-101.0); MEAN PLATELET VOLUME 10.1 fl (7.4-10.4); MONOCYTE # 0.5 10^3/ul (0.3-0.9); MONOCYTES % 6.7 % (0.0-11.0); NEUTROPHIL # 4.2 10^3/ul (1.6-7.5); NEUTROPHILS % 57.4 % (39.0-77.0); PLATELET COUNT 406 10^3/UL (140-415); RED BLOOD COUNT 3.73 10^6/ul (4.20-5.40); RED CELL DISTRIBUTION WIDTH 12.6 % (11.5-14.5)
[2019-06-20 08:00] LABS: ANION GAP 5 (5-13); BLOOD UREA NITROGEN 8 mg/dl (7-20); CALCIUM 9.4 mg/dl (8.4-10.2); CARBON DIOXIDE 30 mmol/L (21-31); CHLORIDE 105 mmol/L (97-110); CREATININE 0.54 mg/dl (0.44-1.00); Estimated GFR > 60 mL/min (>60); GLUCOSE 96 mg/dl (70-220); SODIUM 140 mmol/L (135-144)
[2019-06-20] MEDS: DOCUSATE SODIUM 100 MG CAP PO ×2 (08:34→20:11)
[2019-06-20] MEDS: HYDROCODONE/APAP (5/325) TAB PO ×2 (08:34→19:35)
[2019-06-20] MEDS: MULTIVITAMINS THERAPEUTIC TAB PO (08:34)
[2019-06-20] MEDS: THIAMINE 100 MG TAB PO (08:34)
[2019-06-20] MEDS: ENOXAPARIN 40 MG/0.4 ML SYG SC (08:37)
[2019-06-21] MEDS: HYDROCODONE/APAP (5/325) TAB PO ×3 (06:19→20:24)
[2019-06-21] MEDS: THIAMINE 100 MG TAB PO (08:40)
[2019-06-21] MEDS: MULTIVITAMINS THERAPEUTIC TAB PO (08:40)
[2019-06-21] MEDS: ENOXAPARIN 40 MG/0.4 ML SYG SC (08:41)
[2019-06-21] MEDS: DOCUSATE SODIUM 100 MG CAP PO ×2 (08:41→20:24)
[2019-06-22] MEDS: HYDROCODONE/APAP (5/325) TAB PO ×2 (05:11→15:26)
[2019-06-22] MEDS: DOCUSATE SODIUM 100 MG CAP PO (08:27)
[2019-06-22] MEDS: THIAMINE 100 MG TAB PO (08:27)
[2019-06-22] MEDS: MULTIVITAMINS THERAPEUTIC TAB PO (08:27)
[2019-06-22] MEDS: ENOXAPARIN 40 MG/0.4 ML SYG SC (08:28)
== END 2019-06-22 17:08 | disposition home or self-care (01) | DRG 494 ==
LOC: E/R 23:07 → PP2 06-06 00:21
PROC: 0QSG04Z Reposition Right Tibia with Internal Fixation Device, Open Approach (ICD-10-PCS; principal; 2019-06-09 14:30)
DX: S82.141A Displaced bicondylar fracture of right tibia, initial encounter for closed fracture (principal); F10.229 Alcohol dependence with intoxication, unspecified; Y90.7 Blood alcohol level of 200-239 mg/100 ml; J44.9 Chronic obstructive pulmonary disease, unspecified; F17.210 Nicotine dependence, cigarettes, uncomplicated; W19.XXXA Unspecified fall, initial encounter
CPT/HCPCS: 36415; 71045; 72170; 73560; 73562; 73700; 80048; 80053; 80061; 80307; 81003; 83036; 83735; 84100; 85025; 85610; 85730; 86704; 86709; 86803; 86850; 86900; 86901; 86920; 87086; 87340; 93005; 94640; 96372; 97110; 97116; 97162; 97530; 99285-25